=== PATIENT | male | born 1985 | race Caucasian/White ===

== ENCOUNTER 2024-10-04 05:35 | Emergency (ER) | payer SELFPAY ==
[~2024-10-04] VITALS: Ht 167.6 cm; Wt 78.0 kg
[2024-10-04 05:41] VITALS: O2SAT 98
[2024-10-04] MEDS: ACETAMINOPHEN 325MG TABLET PO ONE (07:39)
[2024-10-04 07:42] VITALS: BP 144/87; PULSE 96; RESP 18; TEMP 36.78072; O2SAT 98
== END 2024-10-04 07:59 | disposition home or self-care (01) ==
LOC: ER 05:35
DX: S02.2XXA Fracture of nasal bones, initial encounter for closed fracture (principal); S09.90XA Unspecified injury of head, initial encounter; W22.8XXA Striking against or struck by other objects, initial encounter; Y93.89 Activity, other specified; Y92.89 Other specified places as the place of occurrence of the external cause; Y99.8 Other external cause status
CPT/HCPCS: 70486; 99284